=== PATIENT | female | born 1950 | race Caucasian/White ===

== ENCOUNTER → 2018-11-21 06:55 | Outpatient (CLI) | payer MEDICARE, SELFPAY ==
--- NOTE | 2018-11-21 06:58 | NM_ITS ---
APPROVED REPORT Exam: Nuclear Stress Test Indication: Chest pain, SOB, Fatigue, Swelling, HTN, High Cholesterol, Family hx Patient Location: Outpatient Stress Tech: Eve Barcenas [place] Tech:KARMA Burrell RT(R)(N) Ht: 4 ft 11 in Wt: 140 lbs BSA: 1.58 m2 HR: 72 bpm BP: 129/83 mmHg BMI: 28.2 History: Chest pain, SOB, Fatigue, Swelling, HTN, High Cholesterol, Family hx Procedure: Patient received a 0.4 mg of intravenous Lexiscan, resting heart rate 72 bpm, resting blood pressure 129/83 mmHg, with Lexiscan maximum heart rate achived was 112 bpm which is Less than 85 % of the maximum predicted heart rate and blood pressure was 116/63 mmHg. With Lexiscan, patient denied any complaint of chest pain. Electrocardiogram Resting electrocardiogram showed sinus rhythm, with Lexiscan there is less than 1.[address] segment depression noted from the baseline EKG. The EKG portion of the Lexiscan Myoview is nondiagnostic. Cardiac Stress and Resting SPECT Images: Cardiac Stress and Resting SPECT images were obtained using technetium 99m Myoview 32 mCi stress and 10 mCi at rest. Gated SPECT with analysis of segmental wall motion and calculation of ejection fraction also done. Cardiac stress and resting SPECT images show uniform myocardial activity without segmental perfusion abnormality, computer derived ejection fraction is 57% with no regional wall motion abnormality, right ventricle is normal size and contractility. Conclusion: 1. The EKG portion of the Lexiscan Myoview is nondiagnostic. 2. No scintigraphic evidence of reversible ischemia seen, computer derived ejection fraction is 57% with no regional wall motion abnormality, right ventricle is normal size and contractility. 3. Normal Lexiscan Myoview study. Electronically signed by : Carmelo Desai, 11/28/2018 16:37:46
--- NOTE | 2018-11-21 09:58 | CA_ITS ---
APPROVED REPORT Exam: Pharmacologic Technologist: martha calderon, Ht: 4 ft 11 in Wt: 140 lbs BSA: 1.58 m2 HR: 72 bpm BP: 129/83 mmHg Indications: CP, SOB, Fatigue Medical History Medical History: HTN, Hyperlipidemia Medications: Levothyroxine,,,,, Lasix,,,,, OxYbutinin,,,,, AmlodiNPINE,,,,, OmPERAZOLE,,,,, Simvasatin,,,,, Allergies: NICKEL,PCN,SULFA Cardiac Risk Factors: FHX of CAD Stress Test Details Test: LEXISCAN HR Resting HR: 69 bpm Max Heart Rate (APMHR): 150 bpm Max HR Achieved: 113 bpm Target HR (85% APMHR): 127 bpm % of APMHR: 75 Recovery HR: 83 bpm BP Resting BP: 129.0/83.0 mmHg Max BP: 111.0/63.0 mmHg Recovery BP: 116.0/83.0 mmHg ECG Resting ECG: NSR LOW VOLTAGE QRS IN PRECORDIAL LEADS Clinical Exercise duration: 05:03 min Highest Stage Achieved: Exercise capacity: 1.0 METs Stress ECG Conclusion SYMPTOMS: MALAISE BUT NO CHEST PAIN. ARRHYTHMIAS/ECTOPY: NONE. ST-T CHANGES: NO SIGNIFICANT CHANGES. UNREMARKABLE LEXISCAN STRESS. MYOVIEW IMAGES REPORTED SEPARATELY. Electronically signed by : Fabian Chen, 11/21/2018 13:05:45
--- NOTE | 2018-11-21 10:31 | HMH.ITSHM ---
Current Home Medications as stated by this patient Sarah Feliciano or medical sales representative. [] levothyroxin amlodipine simvastatin oxybutynin esomeprazole furosemide
== END ==
PROVIDERS: PCP Family Medicine; Visit Provider Urology
DX: R06.02 Shortness of breath; R07.9 Chest pain, unspecified; E78.5 Hyperlipidemia, unspecified; I27.20 Pulmonary hypertension, unspecified; R06.83 Snoring; R53.83 Other fatigue; R60.0 Localized edema; R93.1 Abnormal findings on diagnostic imaging of heart and coronary circulation; Z82.49 Family history of ischemic heart disease and other diseases of the circulatory system; Z86.711 Personal history of pulmonary embolism; Z86.718 Personal history of other venous thrombosis and embolism; G47.33 Obstructive sleep apnea (adult) (pediatric)
CPT/HCPCS: 78452; 93017; A9502; G0399; J2785

== ENCOUNTER → 2018-11-27 14:36 | Outpatient (CLI) | payer MEDICARE, SELFPAY ==
[2018-11-27 17:11] LABS: Anion Gap 16.5 mEq/L (5-15); Blood Urea Nitrogen 20 mg/dL (7-18); Calcium 8.7 mg/dL (8.5-10.1); Carbon Dioxide 27 mmol/L (21.0-32.0); Chloride 104 mmol/L (98-107); Creatinine,Serum 0.96 mg/dL (0.55-1.02); Estimated Glomerular Filt Rate 57 ml/min (>60); GFR (African American) 70 ML/MIN (>60); Glucose 94 mg/dL (74-106); Potassium 4.5 mmoL/L (3.5-5.1); Sodium 143 mmol/L (136-145)
== END ==
PROVIDERS: Visit Provider Urology
DX: E78.5 Hyperlipidemia, unspecified (principal); I10 Essential (primary) hypertension; I27.20 Pulmonary hypertension, unspecified; R06.02 Shortness of breath; G47.9 Sleep disorder, unspecified; R06.83 Snoring; R53.83 Other fatigue; R60.0 Localized edema; R93.1 Abnormal findings on diagnostic imaging of heart and coronary circulation; Z82.49 Family history of ischemic heart disease and other diseases of the circulatory system; Z86.711 Personal history of pulmonary embolism; Z86.718 Personal history of other venous thrombosis and embolism
CPT/HCPCS: 36415; 80048

== ENCOUNTER → 2019-09-15 13:21 | Outpatient (CLI) | payer MEDICARE, SELFPAY ==
--- NOTE | 2019-09-15 13:26 | MM_ITS ---
PROCEDURE: MM DIG SCREENING MAMM BI W/CAD Digital Breast Tomosynthesis Included CLINICAL INDICATION: SCREENING There is no personal or family history of breast cancer.. COMPARISON: MM SCREENING MAMMOGRAM from 07/30/2012 MM UNILATERAL MAMMOGRAM from 08/05/2012 MM SCREENING MAMMOGRAM from 08/04/2016 TECHNIQUE: Standard CC and MLO images and 3D Tomosynthesis was obtained. R2 CAD reviewed. FINDINGS: Moderate diffuse fibroglandular densities are seen throughout both breasts. There is a mole marker right breast and there are 2 benign-appearing calcifications left breast. There are 2 tiny benign-appearing nodular densities outer quadrant right breast. There is no suspicious lesion and no suspicious microcalcifications. IMPRESSION: Moderate heterogenic breast density with no suspicious lesions seen BI-RAD Category: 2 Benign Finding(s) FOLLOW-UP: 1YR 1 Year Follow-up (A letter has been sent to the patient regarding results of the study.) Dictated by: Dr. Warren Maharaj MD 09/19/2019 10:[address] Warren Maharaj MD in [place] 09/19/2019 10:18
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
== END ==
PROVIDERS: PCP Family Medicine; Visit Provider Family Medicine
DX: Z12.31 Encounter for screening mammogram for malignant neoplasm of breast (principal); Z13.820 Encounter for screening for osteoporosis; Z78.0 Asymptomatic menopausal state
CPT/HCPCS: 77063; 77067; 77080

== ENCOUNTER → 2020-04-30 10:59 | Outpatient (CLI) | payer MEDICARE, SELFPAY ==
--- NOTE | 2020-04-30 11:09 | CA_ITS ---
APPROVED REPORT EXAM: Comprehensive 2D, Doppler, and color-flow Echocardiogram Candle Molder Machine: Sendy Juarez RT(R) Ht: 4 ft 11 in Wt: 145lbs BSA: 1.61 BP: 126/73 mmHg Indications: SOB, HTN, DD, PHTN, Family hx of HD, edema 2D Dimensions LVOT 1.63 cm (M/F) 1.5-2.5 M-Mode Dimensions RVDd 2.92 cm (0.9-2.6) LA Diam 2.87 cm (1.9-4.0) LVDd 3.40 cm (3.5-5.7) Ao Diam 2.54 cm (2.0-3.7) LVDs 2.60 cm (3.5-5.7) IVSd 1.00 cm (0.6-1.1) PWd 0.92 cm (0.6-1.1) EF (Teich) 48.10% FS 23.50% EDV (Teich) 47.40 mL ESV (Teich) 24.60 mL LV Diastology E Decel Time 200.00 (160-240 msec) E/A Ratio 0.7 MED E' 6.70 (< 7 cm/sec) E'/MED E' Ratio 9.46 (>14) LAT E' 9.00 (<10 cm/sec) E/LAT E' Ratio 7.04 (>14) Mitral Valve MV E Max Neto. 63.00 (40-130 cm/s) MV A Velocity 95.00 (40-130 cm/s) E/A Ratio 0.67 MV Decel. Time 200.00 (160-240 ms) MV PHT 59.00 ms Tricuspid Valve TR P. Velocity 227.00 cm/s RAP Estimate 15.00 mmHg RVSP 35.70 mmHg Left Ventricle Left atrium is mildly enlarged, left ventricle is normal size, mild concentric left ventricular hypertrophy, visually estimated ejection fraction 55% with no regional wall motion abnormality, grade 1 diastolic dysfunction seen without tissue Doppler evidence of raise left atrial pressure. Right Ventricle Right atrium and right ventricle are mildly enlarged with normal contractility. Aortic Valve Aortic valve is minimally thickened and fibrosed, there is no aortic stenosis or aortic insufficiency. Mitral Valve Mitral valve leaflets are minimally thickened, there is mild mitral regurgitation. Tricuspid Valve Tricuspid valve grossly normal, there is mild tricuspid regurgitation, calculated right ventricular systolic pressure is 36 mmHg. Pulmonic Valve Pulmonic valve is poorly visualized. Great Vessels Aortic root is normal size. Pericardium No significant pericardial effusion noted. Conclusion 1. Mild biatrial enlargement, normal left ventricular size, mild concentric left ventricular hypertrophy, visually estimated ejection fraction 55% with no regional wall motion abnormality, grade 1 diastolic dysfunction seen without tissue Doppler evidence of raise left atrial pressure. 2. Mildly enlarged right ventricle with normal contractility. 3. Mild mitral and tricuspid regurgitation, calculated right ventricular systolic pressure 36 mmHg 4. No significant pericardial effusion noted. Electronically signed by : Carmelo Desai, 05/13/2020 14:11:47
== END ==
PROVIDERS: PCP Family Medicine; Visit Provider Nurse Practitioner Family
DX: E78.2 Mixed hyperlipidemia (principal); I10 Essential (primary) hypertension; I27.20 Pulmonary hypertension, unspecified; R60.0 Localized edema; Z82.49 Family history of ischemic heart disease and other diseases of the circulatory system; Z86.711 Personal history of pulmonary embolism; Z86.718 Personal history of other venous thrombosis and embolism
CPT/HCPCS: 93306

== ENCOUNTER 2020-10-20 13:39 | Outpatient (CLI) | payer MEDICARE, SELFPAY ==
[2020-10-20 14:15] VITALS: BP 134/71; PULSE 74; RESP 18; TEMP 36.7; O2SAT 97
== END 2020-10-20 14:15 | disposition home or self-care (01) ==
LOC: INF 13:41
PROVIDERS: Visit Provider Family Medicine
DX: M81.0 Age-related osteoporosis without current pathological fracture (principal)
CPT/HCPCS: 96372; J0897

== ENCOUNTER → 2020-10-29 15:26 | Outpatient (CLI) | payer MEDICARE, SELFPAY ==
--- NOTE | 2020-10-29 15:29 | MM_ITS ---
PROCEDURE: MM DIG SCREENING MAMM BI W/CAD Digital Breast Tomosynthesis Included CLINICAL INDICATION: SCREENING COMPARISON: MG MM SCREENING MAMMOGRAM from 07/30/2012 MG MM UNILATERAL MAMMOGRAM from 08/05/2012 MG MM SCREENING MAMMOGRAM from 08/04/2016 MG MM DIG SCREENING MAMM BI W/CAD from 09/15/2019 TECHNIQUE: Standard CC and MLO images and 3D Tomosynthesis was obtained. R2 CAD reviewed. FINDINGS: Average fibroglandular tissue. Small marker is placed in the lateral right breast. Benign-appearing nodules are present bilaterally. There are benign-appearing calcifications bilaterally. In the lower inner left breast central 1/3 there is a benign-appearing nodule measuring 4 mm. This was more prominent on 08/04/2016 but became less prominent on 09/15/2019. May be due to recurring cyst. Suggest 6 month follow-up to confirm stability. No other significant anomalies evident. No malignant appearing mass or malignant-appearing microcalcification. IMPRESSION: Benign findings right breast. Probably benign findings left breast. Recommend six-month follow-up. Ultrasound may need to be performed at that time if the nodule increases in size. BI-RAD Category: 3 Probably Benign Finding Short Term Follow-Up FOLLOW-UP: 6M 6 Month Follow-up (A letter has been sent to the patient regarding results of the study.) Dictated by: Ubaldo Zarco MD 11/11/2020 15:00 Ubaldo Zarco MD in [place] 11/11/2020 15:00
== END ==
PROVIDERS: PCP Family Medicine; Visit Provider Family Medicine
DX: Z12.31 Encounter for screening mammogram for malignant neoplasm of breast (principal)
CPT/HCPCS: 77063; 77067

== ENCOUNTER 2020-11-05 17:04 | Emergency (ER) | payer MEDICARE, SELFPAY ==
[2020-11-05 17:30] VITALS: BP 125/75; PULSE 65; RESP 21; TEMP 36.6; O2SAT 100; BMI 26.9
[2020-11-05 17:56] VITALS: BP 125/75; PULSE 65; RESP 21; TEMP 36.6; O2SAT 100
--- NOTE | 2020-11-05 17:57 | HMH.EDUTC ---
[facility] [place] Disposition Clinical Impression: Exposure to COVID-19 virus Disposition: Home, Self-Care Condition on Discharge: Good Instructions: DI for COVID-19 (Suspected or Confirmed ), Coronavirus Disease 2019, How to Care for Someone with COVID-19, Preventing the Spread of Coronavirus Discharge Instructions Additional Instructions: *Monitor Temp, Over the counter Motrin or Tylenol as directed/as needed Tylenol every 4 hours and Motrin every 6 hours (as long as your family doctor has told you that you can take it) for fever or pain. and straight to ER if unable to lower temp less than 101.0 after medication given *Warm salt water gargles may help to soothe the throat *Throat Lozenges *Warm fluids like tea with honey may help to soothe the throat *Sleep elevated *Humidifier/Vaporizer Follow up IMMEDIATELY for new or worsening symptoms or no Noticeable improvement over the next 48-72 hours. 911 for difficulty breathing or swallowing You were tested for today for COVID19 your test result should be back in the next 24-48 hours, you may call to the [facility] to see if your test results are back in the next 48 hours [phone] [facility] hours are 9am-9pm You was given a handout with instructions for Self Quarantine and Self isolation for while you wait on test results and what to do if they are positive If you are positive the Health Dept will be contacting you also Make sure to take your Vitamins Vit. C Vit D and Zinc if you can take them Referrals: Sandra Love [Primary Care Provider] - As needed Time of Disposition: 17:58 Medical Decision Making - Izaiah Inquiry Pt receiving controlled substance: No Izaiah was queried for this patient: No Vital Signs: 11/05/20 17:30 11/05/20 17:56 Temperature 97.8 F 97.8 F Temperature Source Oral Pulse Rate 65 Pulse Rate [Right Brachial] 65 Respiratory Rate 21 21 Blood Pressure 125/75 Blood Pressure [Right Arm] 125/75 Blood Pressure Mean [Right Arm] 91 Blood Pressure Source [Right Arm] Automatic Cuff Blood Pressure Position [Right Arm] Sitting 02 Sat by Pulse Oximetry 100 Oxygen Delivery Method Room Air Orders (Tests/Meds): ORDERS Category Date Time Status Covid-19 Nasal PCR ([facility]) Routine Lab 11/05/20 17:25 Ordered [facility] [place] HPI - General Stated complaint: covid test Time Seen by Provider: 11/05/20 17:58 Mode of Arrival: Ambulatory Source of Information: Patient Limitations: No Limitations Description of Symptoms (Recalled from Triage Doc. by RN): COVID TEST D/T EXPOSURE. DENIES SYMPTOMS HEENT Symptoms (Recalled from RN notes): No Resp Symptoms (Recalled from RN notes): No Skin Symptoms (Recalled from RN notes): No MS Symptoms (Recalled from RN notes): No Functional Status (Recalled from RN notes): WNL - History of Present Illness Provider Complaint: Patient states that she was recently around someone that tested positive for COVID States that she is not having any symptoms but has bad lungs and she wanted to get tested - Related Data Home Medications Medication Instructions Recorded Confirmed apixaban 5 mg tablet 5 mg PO BID 11/13/18 10/20/20 simvastatin 20 mg tablet 20 mg PO QHS 11/13/18 10/20/20 oxybutynin chloride 15 mg 15 mg PO DAILY #90 tab 10/08/19 10/20/20 tablet,extended release 24 hr krill oil 500 mg capsule 1 cap PO DAILY 10/11/20 10/20/20 levothyroxine 125 mcg tablet 125 mcg PO DAILY tab 10/11/20 10/20/20 losartan 100 mg tablet 100 mg PO DAILY tab 10/11/20 10/20/20 vitamins A,C,Z-mtyb-ztbppn 14,320 1 cap PO BID 10/11/20 10/20/20 unit-226 mg-200 unit capsule Furosemide [Furosemide 40MG tAB*] 40 mg PO DAILY 10/20/20 10/20/20 Allergies Allergy/AdvReac Type Severity Reaction Status Date / Time nickel Allergy Mild Verified 10/11/20 13:25 Penicillins Allergy Mild Verified 10/11/20 13:25 Sulfa (Sulfonamide Allergy Mild Verified 10/11/20 13:25 Antibiotics) - Worker's Comp Is this a Worker's Comp case?: No [facility]
== END 2020-11-05 18:08 | disposition home or self-care (01) ==
PROVIDERS: Emergency Provider Nurse Practitioner; PCP Family Medicine
DX: Z20.822 Contact with and (suspected) exposure to COVID-19 (principal); K21.9 Gastro-esophageal reflux disease without esophagitis; I10 Essential (primary) hypertension; E78.5 Hyperlipidemia, unspecified
CPT/HCPCS: G0463; 99202; U0003

== ENCOUNTER → 2020-12-23 12:58 | Outpatient (CLI) | payer MEDICARE, SELFPAY | PROVIDERS: PCP Family Medicine; Visit Provider Nurse Practitioner | DX: Z20.822 Contact with and (suspected) exposure to COVID-19 (principal) | CPT/HCPCS: C9803; U0003; U0005 ==

== ENCOUNTER 2021-05-03 14:05 | Outpatient (CLI) | payer MEDICARE, SELFPAY ==
[2021-05-03 14:20] VITALS: BP 137/78; PULSE 63; RESP 18; TEMP 36.3; O2SAT 99
== END 2021-05-03 14:20 | disposition home or self-care (01) ==
LOC: INF 14:07
PROVIDERS: PCP Family Medicine; Visit Provider Family Medicine
DX: M81.0 Age-related osteoporosis without current pathological fracture (principal)
CPT/HCPCS: 96372; J0897

== ENCOUNTER → 2021-09-12 13:45 | Outpatient (CLI) | payer MEDICARE, SELFPAY ==
[2021-09-12 14:32] LABS: Alanine Aminotransferase 22 U/L (12-78); Alkaline Phosphatase 69 U/L (38-126); Aspartate Amino Transferase 26 U/L (14-36); Bilirubin,Unconjugated 0.5 mg/dL (0.0-1.1); Chol/HDL Ratio 2.8 (1-3.5); Cholesterol 189 mg/dl (140-200); HDL Cholesterol 67 mg/dl (40-60); Total Protein,Serum 6.3 g/dl (6.3-8.2); Triglycerides 143 mg/dl (30-150); VLDL Cholesterol 29 mg/dL (0-40)
[2021-09-12 14:35] LABS: Bilirubin,Indirect 0.1 mg/dL (0.0-0.9); Bilirubin,Total 0.1 mg/dl (0.2-1.3)
[2021-09-12 14:49] LABS: Direct LDL Cholesterol 94.14 mg/dL (100-129)
== END ==
PROVIDERS: PCP Family Medicine; Visit Provider Nurse Practitioner
DX: E78.5 Hyperlipidemia, unspecified (principal); I10 Essential (primary) hypertension; I27.20 Pulmonary hypertension, unspecified; Z86.711 Personal history of pulmonary embolism; Z86.718 Personal history of other venous thrombosis and embolism
CPT/HCPCS: 36415; 80061; 80076

== ENCOUNTER 2022-06-20 12:55 | Outpatient (CLI) | payer MEDICARE, SELFPAY ==
[2022-06-20 13:10] VITALS: BP 124/71; PULSE 70; RESP 18; TEMP 36.7; O2SAT 98
== END 2022-06-20 13:36 | disposition home or self-care (01) ==
LOC: INF 12:56
PROVIDERS: PCP Family Medicine; Visit Provider Family Medicine
DX: M81.0 Age-related osteoporosis without current pathological fracture (principal)
CPT/HCPCS: 96372; J0897

== ENCOUNTER 2022-12-22 13:13 | Outpatient (CLI) | payer MEDICARE, SELFPAY ==
[2022-12-22 13:36] VITALS: BP 105/69; PULSE 71; RESP 18; TEMP 36.4; O2SAT 98
== END 2022-12-22 13:49 | disposition home or self-care (01) ==
LOC: INF 13:14
PROVIDERS: PCP Family Medicine; Visit Provider Family Medicine
DX: M81.0 Age-related osteoporosis without current pathological fracture (principal)
CPT/HCPCS: 96372; J0897

== ENCOUNTER 2023-06-22 13:02 | Outpatient (CLI) | payer MEDICARE, SELFPAY ==
[2023-06-22 13:10] VITALS: BP 118/70; PULSE 72; RESP 18; O2SAT 99
[2023-06-22] MEDS: DENOSUMAB 60 MG/ML SYRINGE SQ (13:10)
== END 2023-06-22 13:15 | disposition home or self-care (01) ==
LOC: INF 13:03
PROVIDERS: PCP Family Medicine; Visit Provider Family Medicine
DX: M81.0 Age-related osteoporosis without current pathological fracture (principal)
CPT/HCPCS: 96372; J0897

== ENCOUNTER 2023-10-29 17:40 | Emergency (ER) | payer OTHER, SELFPAY ==
[2023-10-29 17:56] VITALS: BP 128/78; PULSE 84; RESP 16; TEMP 36.8; O2SAT 99; BMI 26.2
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
[2023-10-29] MEDS: ACETAMINOPHEN 500MG TAB 1000 MG PO (19:08)
[2023-10-29 20:18] VITALS: BP 131/82; PULSE 68; RESP 16; TEMP 36.8; O2SAT 95
== END 2023-10-29 20:22 | disposition home or self-care (01) ==
PROVIDERS: Emergency Provider Student in an Organized Health Care Education/Training Program; PCP Family Medicine
DX: S60.221A Contusion of right hand, initial encounter (principal); M54.6 Pain in thoracic spine; V49.40XA Driver injured in collision with unspecified motor vehicles in traffic accident, initial encounter; Y92.410 Unspecified street and highway as the place of occurrence of the external cause
CPT/HCPCS: 72128; 72131; 73090; 73100; 73130; 99285

== ENCOUNTER 2024-02-25 14:00 | Outpatient (CLI) | payer MEDICARE, SELFPAY ==
[2024-02-25 14:11] VITALS: BP 115/89; PULSE 79; RESP 16; TEMP 36.6; O2SAT 97
[2024-02-25] MEDS: DENOSUMAB 60 MG/ML SYRINGE SUBCUT (14:11)
== END 2024-02-25 14:20 | disposition home or self-care (01) ==
LOC: INF 14:01
PROVIDERS: PCP Family Medicine; Visit Provider Family Medicine
DX: M81.0 Age-related osteoporosis without current pathological fracture (principal)
CPT/HCPCS: 96372; J0897